=== PATIENT | male | born 1965 | race African-American/Black ===

== ENCOUNTER → 2020-09-05 | Outpatient (CLI) | payer OTHER ==
--- NOTE | 2020-09-05 15:45 | KCIC ---
XR CHEST 2V History: Reason: Cough, congestion. / Spl. Instructions: / History: Comparison: None. Findings: No consolidation or pleural effusion. Normal heart size. No pneumothorax. Impression: 1. No acute cardiopulmonary process. Electronically signed by: Abraham Urena DO (09/05/2020 3:43 PM) [facility]
== END ==
LOC: KCIC 13:26
PROVIDERS: ATTEND Family Medicine
DX: R05 Cough (principal); R09.81 Nasal congestion
CPT/HCPCS: 71046